=== PATIENT | male | born 1955 | race Two or more races ===

== ENCOUNTER 2020-07-28 12:17 | Emergency (ER) | payer SELFPAY ==
[~2020-07-28] VITALS: Ht 172.7 cm; Wt 67.9 kg
[2020-07-28] MEDS ORDERED: DEXAMETHASONE 4 MG TABLET PO ONE (13:00)
--- NOTE | 2020-07-28 13:00 | NUR ---
Assumed care of patient. Positive COVID result on Sunday and continues to have C/O cough and fever. NAD. VSS. Will continue to monitor.
[2020-07-28] MEDS ORDERED: DEXAMETHASONE 4 MG TABLET ONE (13:11)
[2020-07-28 13:25] LABS: BASOPHILS % (AUTO) 0 % (0-1); EOSINOPHILS % (AUTO) 0 % (1-7); LYMPHOCYTES % (AUTO) 9 % (22-44); MEAN CORPUSCULAR HEMOGLOBIN 31.1 pg (27.5-34.5); MEAN CORPUSCULAR HGB CONC 34.1 g/dL (33.2-36.2); MEAN PLATELET VOLUME 8.2 fL (7.4-10.4); MONOCYTES % (AUTO) 6 % (2-9); NEUTROPHILS % (AUTO) 85 % (42-75); PLATELET COUNT 276 x10^3/uL (130-400); RED BLOOD COUNT 3.86 x10^6/uL (4.38-5.82); RED CELL DISTRIBUTION WIDTH 13.2 % (9.4-14.8)
[2020-07-28 13:28] LABS: MD NO
[2020-07-28] MEDS ORDERED: AZITHROMYCIN 500 MG TABLET PO ONE (13:30)
[2020-07-28] MEDS ORDERED: CEFTRIAXONE 1,000 MG IM ONE (13:30)
[2020-07-28 13:39] LABS: ALANINE AMINOTRANSFERASE 89 U/L (12-78); ALBUMIN 2.5 g/dL (3.4-5.0); ANION GAP 8 mmol/L (5-15); CALCIUM 8.1 mg/dL (8.5-10.1); CHLORIDE 103 mmol/L (98-107); CREATININE 0.66 mg/dL (0.7-1.3)
[2020-07-28] MEDS ORDERED: AZITHROMYCIN 250 MG TABLET ONE (13:40)
[2020-07-28] MEDS ORDERED: LIDOCAINE-MPF 1%, 2ML ONE (13:40)
[2020-07-28] MEDS ORDERED: CEFTRIAXONE 1,000 MG ONE (13:40)
[2020-07-28 13:41] LABS: ALKALINE PHOSPHATASE 77 U/L (45-117); TOTAL PROTEIN 6.6 g/dL (6.4-8.2)
--- NOTE | 2020-07-28 13:44 | NUR ---
Meds admin. NAD. No other needs.
[2020-07-28 14:26] VITALS: BP 147/85
--- NOTE | 2020-07-28 14:48 | NUR ---
Patient/Caregiver given discharge instructions and they have confirmed that they understand the instructions. Patient ambulatory with steady gait.
== END 2020-07-28 14:49 | disposition home or self-care (01) ==
LOC: ED 13:32
DX: U07.1 COVID-19 (principal); J18.9 Pneumonia, unspecified organism; R05 Cough; M79.10 Myalgia, unspecified site; R50.9 Fever, unspecified; R94.31 Abnormal electrocardiogram [ECG] [EKG]
CPT/HCPCS: 36415; 71045; 80053; 85025; 93005; 96372; 99285; J0696